=== PATIENT | female | born 1970 | race Caucasian/White ===

== ENCOUNTER 2021-08-02 19:56 | Emergency (ER) | payer OTHER ==
[~2021-08-02] VITALS: Ht 157.5 cm; Wt 74.4 kg
[2021-08-02 20:10] VITALS: BP_SYST 133
--- NOTE | 2021-08-02 20:17 | NUR ---
Patient to ER bed 4 to gown for evaluation. Side rails up. Report given to Mike CASANOVA.
--- NOTE | 2021-08-02 20:22 | NUR ---
Dr. Huggins bedside for pt eval
--- NOTE | 2021-08-02 20:41 | NUR ---
Pt BIB friend to ED C/O acute onset, constant abdominal pain today. Pain is mild, nonradiating. No alleviating or exacerbating factors. Patient states that 3 days ago she swallowed her fake left upper incisor tooth and believes that her pain may be due to that. Symptoms started at rest
[2021-08-02 21:05] LABS: BASOPHILS % (AUTO) 0.5 % (0.0-2.0); EOSINOPHILS # (AUTO) 0.2 K/uL (0.0-0.4); EOSINOPHILS % (AUTO) 1.9 % (0.0-4.0); HEMATOCRIT 41.5 % (36-48); HEMOGLOBIN 14.2 g/dL (12.0-16.0); LYMPHOCYTES # (AUTO) 3.1 K/uL (1.0-5.5); MEAN CORPUSCULAR HEMOGLOBIN 32 pg (27-31); MEAN CORPUSCULAR HGB CONC 34 % (32-36); MEAN CORPUSCULAR VOLUME 92 fL (79.0-98.0); MONOCYTES # (AUTO) 0.8 K/uL (0.0-1.0); MONOCYTES % (AUTO) 7.5 % (1.7-9.3); NEUTROPHILS # (AUTO) 6.3 K/uL (1.8-7.7); NEUTROPHILS % (AUTO) 60.1 % (40.0-70.0); PLATELET COUNT (AUTO) 197 K/uL (130-430); RED CELL DISTRIBUTION WIDTH 13.9 % (9.0-15.0); WHITE BLOOD COUNT (AUTO) 10.4 K/uL (4.8-10.8)
[2021-08-02 21:12] LABS: CALCIUM 9.1 mg/dL (8.4-11.0); CREATININE 0.94 mg/dL (0.55-1.30); POTASSIUM 3.5 mmol/L (3.5-5.1)
[2021-08-02 21:15] LABS: INR 0.9 (0.8-1.2); PROTHROMBIN TIME 9.6 SECS (9.5-12.5)
[2021-08-02 21:22] LABS: ALBUMIN 3.8 g/dL (3.4-4.8); TOTAL BILIRUBIN 0.5 mg/dL (0.0-1.0)
[2021-08-02 21:30] VITALS: BP_SYST 133
--- NOTE | 2021-08-02 21:30 | NUR ---
Pt walked out of ER when hallway pt was going off on her verbal "I'm a citizen" rant.
[2021-08-02] MEDS ORDERED: IMO2 PO (21:41)
[2021-08-02 22:12] LABS: C-REACTIVE PROTEIN QUANT 10.3 mg/dL (0-0.5)
== END 2021-08-02 21:30 | disposition home or self-care (01) ==
LOC: SED 19:56
DX: R10.84 Generalized abdominal pain (principal); Z79.899 Other long term (current) drug therapy
CPT/HCPCS: 36415; 74018; 80053; 82150; 83605; 83690; 84703; 85025; 85610-TC; 85730-TC; 86140; 99284

== ENCOUNTER 2024-07-23 09:45 | Emergency (ER) | payer OTHER ==
[~2024-07-23] VITALS: Ht 154.9 cm; Wt 65.8 kg
[~2024-07-23 09:45] MED LIST: IMO2 PO
[2024-07-23 09:53] VITALS: BP_SYST 115; PULSE 79; RESP 18; TEMP 98.3; O2SAT 97
[2024-07-23 11:38] LABS: BASOPHILS % (AUTO) 0.4 % (0.0-2.0); EOSINOPHILS # (AUTO) 0.3 K/uL (0.0-0.4); EOSINOPHILS % (AUTO) 3.7 % (0.0-4.0); HEMATOCRIT 40.1 % (36-48); HEMOGLOBIN 13.6 g/dL (12.0-16.0); LYMPHOCYTES # (AUTO) 1.9 K/uL (1.0-5.5); LYMPHOCYTES % (AUTO) 22.4 % (20.5-51.5); MEAN CORPUSCULAR HEMOGLOBIN 31 pg (27-31); MEAN CORPUSCULAR HGB CONC 34 % (32-36); MEAN CORPUSCULAR VOLUME 92 fL (79.0-98.0); MONOCYTES # (AUTO) 0.5 K/uL (0.0-1.0); MONOCYTES % (AUTO) 6.3 % (1.7-9.3); NEUTROPHILS # (AUTO) 5.6 K/uL (1.8-7.7); NEUTROPHILS % (AUTO) 67.2 % (40.0-70.0); PLATELET COUNT (AUTO) 192 K/uL (130-430); RED BLOOD CELL COUNT(AUTO) 4.36 MIL/uL (4.2-6.2); RED CELL DISTRIBUTION WIDTH 13.9 % (9.0-15.0); WHITE BLOOD COUNT (AUTO) 8.3 K/uL (4.8-10.8)
[2024-07-23 11:53] LABS: ALBUMIN 3.2 g/dL (3.4-4.8); BILIRUBIN,DIRECT 0.1 mg/dL (0.0-0.3); CALCIUM 8.8 mg/dL (8.4-11.0); CREATININE 0.75 mg/dL (0.55-1.30); TOTAL BILIRUBIN 0.3 mg/dL (0.0-1.0)
[2024-07-23] MEDS ORDERED: ONDA-8 TL (14:39)
[2024-07-23] MEDS ORDERED: AUG875 PO (14:39)
[2024-07-23] MEDS: AMOXICILLIN/POTASSIUM CLAV 875 MG TABLET PO ONE (14:57)
[2024-07-23 15:05] VITALS: BP_SYST 105; PULSE 75; RESP 14; TEMP 98.3; O2SAT 98
== END 2024-07-23 15:05 | disposition home or self-care (01) ==
LOC: SED 09:45
DX: K57.92 Diverticulitis of intestine, part unspecified, without perforation or abscess without bleeding (principal); R10.30 Lower abdominal pain, unspecified; Z79.899 Other long term (current) drug therapy; Z79.2 Long term (current) use of antibiotics
CPT/HCPCS: 99285; 74177; 80076; 80048; 83690; 85025; 36415; Q9967